=== PATIENT | male | born 1990 | race Caucasian/White ===

== ENCOUNTER 2016-12-18 18:00 | Emergency (ER) | payer BC, MEDICAID ==
[2016-12-18 18:01] VITALS: BMI 34.9
[2016-12-18 18:07] VITALS: BP 133/85; PULSE 89; RESP 16; TEMP 98.9; O2SAT 96
--- NOTE | 2016-12-18 18:54 | ED PDOC ---
Arrival/HPI - General Chief Complaint: Lower Extremity Problem/Injury Time Seen by Provider: 12/18/16 18:11 Historian: Patient - History of Present Illness Narrative History of Present Illness (Text): 12/18/16 18:51 Patient c/o right ankle pain after he injured it during [employer] class. Patient denies any other injuries. Past Medical History - Provider Review Nursing Documentation Reviewed: Yes - Tetanus Immunization Tetanus Immunization: Unknown - Cardiac Hx Hypertension: Yes - Pulmonary Hx Respiratory Disorders: No - Neurological Hx Neurological Disorder: No - HEENT Hx HEENT Disorder: No - Renal Hx Renal Disorder: No - Endocrine/Metabolic Hx Endocrine Disorders: No - Hematological/Oncological Hx Blood Disorders: No - Integumentary Hx Dermatological Disorder: No - Musculoskeletal/Rheumatological Hx Musculoskeletal Disorders: No - Gastrointestinal Hx Gastrointestinal Disorders: No - Genitourinary/Gynecological Hx Genitourinary Disorders: No - Psychiatric Hx Depression: No Hx Emotional Abuse: No Hx Physical Abuse: No Hx Substance Use: No - Suicidal Assessment Feels Threatened In Home Enviroment: No Family/Social History - Physician Review Nursing Documentation Reviewed: Yes Family/Social History: Unknown Family HX Smoking Status: Never Smoked Hx Alcohol Use: No Hx Substance Use: No Hx Substance Use Treatment: No Allergies/Home Meds Allergies/Adverse Reactions: Allergies No Known Allergies Allergy (Verified 07/22/13 22:04) Home Medications: Home Meds Medication Instructions Recorded Confirmed No Known Home Med [No Known Home 07/22/13 12/18/16 Med] Review of Systems - Physician Review All systems were reviewed & negative as marked: Yes - Review of Systems Musculoskeletal: Other (right ankle pain) Physical Exam Vital Signs Reviewed: Yes Vital Signs Temp Pulse Resp BP Pulse Ox 12/18/16 18:03 98.9 F 89 16 133/85 96 Pain Distress: None Mental Status: Positive for: Alert and Oriented X 3 - Systems Exam Head: Present: Atraumatic, Normocephalic Neck: Present: Normal Range of Motion. No: MIDLINE TENDERNESS, Paraspinal Tenderness Back: Present: Normal Inspection. No: Midline Tenderness, Paraspinal Tenderness Upper Extremity: Present: Normal Inspection, Normal ROM Lower Extremity: Present: Tenderness (right lateral malleolus), Swelling (right lateral malleolus), Neurovascularly Intact, Capillary Refill < 2 s. No: Erythema, Deformity, Temperature Abnormalties Medical Decision Making ED Course and Treatment: 12/18/16 18:54 Right ankle xray was ordered and negative for fracture. Ibuprofen was given. Air cast was applied by air technician and checked by me. Crutches were provided, crutch walking instruction were given. Patient is stable to be d/c home with Ortho follow up. - RAD Interpretation Radiology Orders: 12/18/16 18:12 ANKLE RIGHT 3 VIEWS ROUTINE [RAD] Stat - Medication Orders Current Medication Orders: Discontinued Medications Ibuprofen (Motrin Tab) 600 mg PO STAT STA Stop: 12/18/16 18:13 Last Admin: 12/18/16 18:33 Dose: 600 mg Disposition/Present on Arrival - Present on Arrival Any Indicators Present on Arrival: No History of DVT/PE: No History of Uncontrolled Diabetes: No Urinary Catheter: No History of Decub. Ulcer: No History Surgical Site Infection Following: None - Disposition Have Diagnosis and Disposition been Completed?: Yes Diagnosis: Ankle sprain Disposition: HOME/ ROUTINE Disposition Time: 18:56 Patient Plan: Discharge Patient Problems: Current Active Problems Problem Status Onset Ankle sprain Acute Condition: STABLE Discharge Instructions (ExitCare): Ankle Sprain (ED), Ankle Stirrup Splint (ED) , Crutch Instructions (ED) Additional Instructions: Follow up with Orthopedist within 1-2 days. Return to ED if feel worse. Referrals: Colette Stark DO [Primary Care Provider] - Follow up with primary Ramos Ruiz III, MD [Medical Doctor] - Follow up with primary Forms: [employer] (Citizen [place])
--- NOTE | 2016-12-19 07:55 | RAD ---
PROCEDURE: Right Ankle Radiographs. HISTORY: injury COMPARISON: None FINDINGS: BONES: Normal. No fracture. JOINTS: Normal. No osteoarthritis. Ankle mortise maintained. Talar dome intact SOFT TISSUES: Lateral soft tissue swelling. OTHER FINDINGS: None. IMPRESSION: No acute fracture. Lateral soft tissue swelling.
== END 2016-12-18 19:01 | disposition home or self-care (01) ==
LOC: ED 18:00
DX: S93.401A Sprain of unspecified ligament of right ankle, initial encounter (principal); X58.XXXA Exposure to other specified factors, initial encounter